=== PATIENT | female | born 1945 | race Caucasian/White ===

== ENCOUNTER 2019-12-24 04:47 | Observation (INO) ==
[2019-12-24 08:25] LABS: Hematocrit 35.7 % (35.3-44.9); Hemoglobin 11.3 g/dL (11.5-15.4)
[2019-12-24] MEDS: Fenofibrate 54 MG TABLET PO SCH (10:16)
[2019-12-24] MEDS: sulfaSALAzine 500 MG TABLET PO SCH ×3 (10:16→19:50)
[2019-12-24 13:38] LABS: Hematocrit 33.6 % (35.3-44.9); Hemoglobin 10.9 g/dL (11.5-15.4)
[2019-12-24] MEDS ORDERED: Lidocaine -MPF 2% 2 ML VIAL ONE (14:20)
[2019-12-24] MEDS ORDERED: *HR* Propofol 200 MG/20 ML VIAL IVP ONE (14:20)
[2019-12-24] MEDS: Pantoprazole 40 MG VIAL IVP SCH (17:11)
[2019-12-24] MEDS: Acetaminophen 325 MG TABLET PO PRN (18:45)
[2019-12-24 19:45] LABS: Hematocrit 34.4 % (35.3-44.9)
[2019-12-24] MEDS ORDERED: Ondansetron 4 MG/2 ML VIAL IVP PRN (22:19)
[2019-12-25] MEDS ORDERED: Ondansetron 4 MG/2 ML VIAL IVP ONE (06:00)
[2019-12-25] MEDS: Pantoprazole 40 MG VIAL IVP SCH (06:04)
[2019-12-25 06:14] LABS: Basophils % 0.7 %; Eosinophils # 0.2 K/mcL (0.0-0.6); Eosinophils % 2.5 %; Hematocrit 33.8 % (35.3-44.9); Hemoglobin 10.7 g/dL (11.5-15.4); Immature Granulocytes % 0.5 % (0-4); Lymphocytes % 16.8 %; Mean Corpuscular HGB Conc 31.7 g/dL (31.6-35.5); Mean Corpuscular Hemoglobin 28.2 pg (28.0-33.3); Mean Corpuscular Volume 88.9 fL (83.0-100.0); Mean Platelet Volume 9.4 fL (9.4-12.4); Monocytes # 0.7 K/mcL (0.0-1.3); Monocytes % 11.4 %; Platelet Count 296 K/mcL (140-400); Red Cell Distribution Width 14.1 % (11.5-14.5); Segmented Neutrophils % 68.1 %; White Blood Count 5.9 K/mcL (4.3-11.1)
[2019-12-25 06:43] LABS: BUN/Creatinine Ratio 18 (6-26); Blood Urea Nitrogen 10 mg/dL (8-23); Calcium 9.2 mg/dL (8.6-10.3); Carbon Dioxide 25 mEq/L (23-29); Chloride 102 mEq/L (98-107); Glucose 122 mg/dL (70-105); Osmolality,Calculated 278 (280-300); Potassium 3.3 mEq/L (3.5-5.1); Sodium 134 mEq/L (136-145); eGFR For African Americans > 60 (> 60); eGFR For Non-African Americans > 60 (> 60)
[2019-12-25] MEDS ORDERED: Simethicone 40 MG/0.6 ML MLS IR ONE (07:33)
[2019-12-25] MEDS: *HR* Midazolam HCl 5 MG/5 ML VIAL IVP ONE ×2 (07:40→10:42)
[2019-12-25] MEDS: *HR* FentaNYL (PF) 100 MCG/2 ML VIAL IVP ONE ×2 (07:40→10:42)
[2019-12-25] MEDS ORDERED: *HR* FentaNYL (PF) 100 MCG/2 ML VIAL ONE (09:30)
[2019-12-25] MEDS ORDERED: *HR* Midazolam HCl 5 MG/5 ML VIAL IVP ONE (09:31)
[2019-12-25] MEDS: Potassium Chloride 20 MEQ, Lidocaine 1% 2 ML in 0.9 % Sodium Chloride 250 ML IVPB ONE ×2 (10:40→11:01)
[2019-12-25] MEDS: sulfaSALAzine 500 MG TABLET PO SCH ×3 (10:41→23:43)
[2019-12-25] MEDS: Fenofibrate 54 MG TABLET PO SCH (10:41)
[2019-12-25] MEDS: Acetaminophen 325 MG TABLET PO PRN (16:25)
[2019-12-25] MEDS: Famotidine 20 MG TABLET PO SCH (23:43)
[2019-12-26 04:16] LABS: Hematocrit 33.7 % (35.3-44.9); Hemoglobin 10.7 g/dL (11.5-15.4)
[2019-12-26 04:37] LABS: BUN/Creatinine Ratio 14 (6-26); Blood Urea Nitrogen 9 mg/dL (8-23); Calcium 8.9 mg/dL (8.6-10.3); Carbon Dioxide 28 mEq/L (23-29); Chloride 106 mEq/L (98-107); Glucose 96 mg/dL (70-105); Osmolality,Calculated 283 (280-300); Potassium 3.9 mEq/L (3.5-5.1); Sodium 137 mEq/L (136-145); eGFR For African Americans > 60 (> 60); eGFR For Non-African Americans > 60 (> 60)
[2019-12-26] MEDS: sulfaSALAzine 500 MG TABLET PO SCH (08:09)
[2019-12-26] MEDS: Fenofibrate 54 MG TABLET PO SCH (08:09)
[2019-12-26] MEDS: Famotidine 20 MG TABLET PO SCH (08:09)
[2019-12-26 11:31] VITALS: BP 123/78
== END 2019-12-26 13:36 | disposition home or self-care (01) ==
LOC: 3ANU → SUATTDRO 06:49
PROVIDERS: ADMIT Internal Medicine; ATTEND Internal Medicine
PROC: ENDOCBX (2019-12-25 13:00)

== ENCOUNTER 2020-12-20 19:34 | Inpatient (IN) ==
[2020-12-20] MEDS ORDERED: Naloxone 0.4 MG/ML INJ IVP PRN (21:52)
[2020-12-20] MEDS: 0.9 % Sodium Chloride 1,000 ML IVC SCH (23:16)
[2020-12-20] MEDS ORDERED: Melatonin 3 MG TABLET PO PRN (23:33)
[2020-12-21 02:19] LABS: Adenovirus F 40/41 PCR Not detected (Not detect); Astrovirus PCR Not detected (Not detect); C.difficile Toxin A/B Gene PCR DETECTED (Not detect); Campylobacter by PCR Not detected (Not detect); Cryptosporidium by PCR Not detected (Not detect); Cyclospora cayetanensis PCR Not detected (Not detect); E. coli O157 by PCR Not detected (Not detect); Entamoeba histolytica PCR Not detected (Not detect); Enteroaggregative E.coli(EAEC) Not detected (Not detect); Enteropathogenic E.coli(EPEC) Not detected (Not detect); Enterotoxigenic E.coli (ETEC) Not detected (Not detect); Giardia lamblia PCR Not detected (Not detect); Norovirus GI/GII PCR Not detected (Not detect); Plesiomonas shigelloides PCR Not detected (Not detect); Rotavirus A PCR Not detected (Not detect); Salmonella PCR Not detected (Not detect); Sapovirus PCR Not detected (Not detect); Shig/EnteroinvasiveE coli EIEC Not detected (Not detect); Shigalike tox-prod E coli STEC Not detected (Not detect); Vibrio PCR Not detected (Not detect); Vibrio cholerae PCR Not detected (Not detect); Yersinia enterocolitica PCR Not detected (Not detect)
[2020-12-21] MEDS: Vancomycin Oral Soln 125 MG/2.5 ML UDC PO SCH ×5 (03:36→19:52)
[2020-12-21 06:54] LABS: INR 1.2; Prothrombin Time 13.3 Seconds (9.4-12.1)
[2020-12-21 06:57] LABS: Basophils # 0.1 K/mcL (0.0-0.2); Basophils % 0.4 %; Eosinophils # 0.4 K/mcL (0.0-0.6); Eosinophils % 3.5 %; Hematocrit 32.7 % (35.3-44.9); Hemoglobin 10.5 g/dL (11.5-15.4); Immature Granulocytes % 0.5 % (0-4); Lymphocytes # 1.5 K/mcL (0.6-4.6); Lymphocytes % 13.2 %; Mean Corpuscular HGB Conc 32.1 g/dL (31.6-35.5); Mean Corpuscular Hemoglobin 27.6 pg (28.0-33.3); Mean Corpuscular Volume 85.8 fL (83.0-100.0); Mean Platelet Volume 9.2 fL (9.4-12.4); Monocytes # 1.3 K/mcL (0.0-1.3); Monocytes % 11.1 %; Neutrophils # 8.1 K/mcL (1.6-8.9); Platelet Count 442 K/mcL (140-400); Red Blood Count 3.81 M/mcL (3.82-4.97); Red Cell Distribution Width 14.8 % (11.5-14.5); Segmented Neutrophils % 71.3 %; White Blood Count 11.4 K/mcL (4.3-11.1)
[2020-12-21] MEDS: 0.9 % Sodium Chloride 1,000 ML IVC SCH (09:22)
[2020-12-21] MEDS: Lisinopril-HCTZ 20-12.5mg TABLET PO SCH (09:26)
[2020-12-21 09:31] LABS: Albumin 2.9 g/dL (3.5-5.7); Albumin/Globulin Ratio 0.9 (1.1-2.2); Alkaline Phosphatase 56 Units/L (34-104); Aspartate Amino Transferase 13 Units/L (13-39); BUN/Creatinine Ratio 15 (6-26); Bilirubin,Total 0.3 mg/dL (0.3-1.0); Blood Urea Nitrogen 8 mg/dL (8-23); Calcium 8.5 mg/dL (8.6-10.3); Carbon Dioxide 24 mEq/L (23-29); Chloride 104 mEq/L (98-107); Globulin 3.2 g/dL (2.4-3.5); Glucose 98 mg/dL (70-105); Magnesium 1.7 mg/dL (1.6-2.6); Osmolality,Calculated 282 (280-300); Potassium 3.3 mEq/L (3.5-5.1); Sodium 137 mEq/L (136-145); Total Protein 6.1 g/dL (6.4-8.9); eGFR For African Americans > 60 (> 60); eGFR For Non-African Americans > 60 (> 60)
[2020-12-21 10:57] LABS: Alanine Aminotransferase 8 Units/L (7-52)
[2020-12-21] MEDS ORDERED: Cyanocobalamin (B-12) 1,000 MCG/ML VIAL IM SCH (15:15)
[2020-12-21] MEDS: Acetaminophen 325 MG TABLET PO PRN ×2 (17:01→23:30)
[2020-12-21] MEDS: Ondansetron 4 MG/2 ML VIAL IVP PRN (23:26)
[2020-12-22 04:59] LABS: Basophils # 0.1 K/mcL (0.0-0.2); Basophils % 0.6 %; Eosinophils # 0.5 K/mcL (0.0-0.6); Eosinophils % 4.3 %; Hematocrit 35.7 % (35.3-44.9); Immature Granulocytes % 0.4 % (0-4); Lymphocytes # 1.6 K/mcL (0.6-4.6); Lymphocytes % 12.8 %; Mean Corpuscular HGB Conc 30.8 g/dL (31.6-35.5); Mean Corpuscular Hemoglobin 27.2 pg (28.0-33.3); Mean Corpuscular Volume 88.1 fL (83.0-100.0); Monocytes # 1.6 K/mcL (0.0-1.3); Monocytes % 12.9 %; Neutrophils # 8.6 K/mcL (1.6-8.9); Platelet Count 457 K/mcL (140-400); Red Blood Count 4.05 M/mcL (3.82-4.97); Red Cell Distribution Width 14.8 % (11.5-14.5); White Blood Count 12.4 K/mcL (4.3-11.1)
[2020-12-22 05:19] LABS: BUN/Creatinine Ratio 9 (6-26); Blood Urea Nitrogen 5 mg/dL (8-23); Calcium 8.5 mg/dL (8.6-10.3); Carbon Dioxide 26 mEq/L (23-29); Chloride 101 mEq/L (98-107); Glucose 96 mg/dL (70-105); Osmolality,Calculated 279 (280-300); Potassium 3.4 mEq/L (3.5-5.1); Sodium 136 mEq/L (136-145); eGFR For African Americans > 60 (> 60); eGFR For Non-African Americans > 60 (> 60)
[2020-12-22] MEDS: Ondansetron 4 MG/2 ML VIAL IVP PRN (08:37)
[2020-12-22] MEDS: Lisinopril-HCTZ 20-12.5mg TABLET PO SCH (08:40)
[2020-12-22] MEDS: Fenofibrate 54 MG TABLET PO SCH (08:40)
[2020-12-22] MEDS: Cholecalciferol (D-3) 1,000 UNIT (25MCG) TABLET PO SCH (08:40)
[2020-12-22] MEDS: Multivit/Ca/Min/Fe/FA 1 TAB TABLET PO SCH (08:41)
[2020-12-22] MEDS: Budesonide [Entocort Ec] 3 MG Capdr...Er PO SCH (08:53)
[2020-12-22] MEDS: Propranolol LA (24 HR) 80 MG CAP.SA.24H PO SCH (08:53)
[2020-12-22] MEDS: Vancomycin Oral Soln 125 MG/2.5 ML UDC PO SCH ×4 (08:58→20:50)
[2020-12-22] MEDS: Ringers Solution, Lactated 1,000 ML IVC SCH (12:19)
[2020-12-22] MEDS: Acetaminophen 325 MG TABLET PO PRN ×2 (17:19→23:28)
[2020-12-23] MEDS ORDERED: 0.9 % Sodium Chloride 1,000 ML IVC ONE (02:12)
[2020-12-23] MEDS: Ringers Solution, Lactated 1,000 ML IVC SCH (04:30)
[2020-12-23 04:53] LABS: Hematocrit 33.7 % (35.3-44.9); Hemoglobin 10.5 g/dL (11.5-15.4); Mean Corpuscular HGB Conc 31.2 g/dL (31.6-35.5); Mean Corpuscular Hemoglobin 26.6 pg (28.0-33.3); Mean Corpuscular Volume 85.3 fL (83.0-100.0); Platelet Count 422 K/mcL (140-400); Red Blood Count 3.95 M/mcL (3.82-4.97); Red Cell Distribution Width 14.8 % (11.5-14.5); White Blood Count 12.7 K/mcL (4.3-11.1)
[2020-12-23 05:09] LABS: BUN/Creatinine Ratio 14 (6-26); Blood Urea Nitrogen 7 mg/dL (8-23); Calcium 7.9 mg/dL (8.6-10.3); Carbon Dioxide 23 mEq/L (23-29); Chloride 104 mEq/L (98-107); Glucose 100 mg/dL (70-105); Magnesium 1.4 mg/dL (1.6-2.6); Osmolality,Calculated 278 (280-300); Phosphorous 2.9 mg/dL (2.7-4.5); Potassium 3.6 mEq/L (3.5-5.1); Sodium 135 mEq/L (136-145); eGFR For African Americans > 60 (> 60); eGFR For Non-African Americans > 60 (> 60)
[2020-12-23 05:18] LABS: Lymphocytes # 0.8 K/mcL (0.6-4.6); Monocytes # 0.3 K/mcL (0.0-1.3); Neutrophils # 11.7 K/mcL (1.6-8.9); Platelet Estimate Normal (Normal); Toxic Granulation Present (Not Present); Toxic Vacuolation Present (Not Present)
[2020-12-23] MEDS ORDERED: Magnesium Oxide 400 MG TABLET PO ONE (07:20)
[2020-12-23] MEDS: Vancomycin Oral Soln 125 MG/2.5 ML UDC PO SCH ×4 (08:19→20:30)
[2020-12-23] MEDS: Propranolol LA (24 HR) 80 MG CAP.SA.24H PO SCH (08:19)
[2020-12-23] MEDS: Fenofibrate 54 MG TABLET PO SCH (08:19)
[2020-12-23] MEDS: Lactobacillus 1 EACH CAP.SPRINK PO SCH (08:19)
[2020-12-23] MEDS: Multivit/Ca/Min/Fe/FA 1 TAB TABLET PO SCH (08:19)
[2020-12-23] MEDS: Cholecalciferol (D-3) 1,000 UNIT (25MCG) TABLET PO SCH (08:19)
[2020-12-23] MEDS: lisinopriL 10 MG TABLET PO SCH (08:19)
[2020-12-23] MEDS: Budesonide [Entocort Ec] 3 MG Capdr...Er PO SCH (08:20)
[2020-12-23] MEDS ORDERED: *HR* Propofol 200 MG/20 ML VIAL IVP ONE (08:43)
[2020-12-23] MEDS ORDERED: Ondansetron 4 MG/2 ML VIAL ONE (08:43)
[2020-12-23] MEDS ORDERED: Lidocaine -MPF 4% 5 ML AMPUL ONE (08:43)
[2020-12-23] MEDS ORDERED: *HR* Succinylcholine 200 MG/10 ML VIAL IVP ONE (08:43)
[2020-12-23] MEDS ORDERED: *HR* FentaNYL (PF) 100 MCG/2 ML VIAL ONE (08:43)
[2020-12-23] MEDS ORDERED: Lidocaine -MPF 2% 2 ML VIAL ONE (08:43)
[2020-12-23] MEDS: methylPREDNISolone 125 MG/2 ML VIAL IVP SCH (09:42)
[2020-12-23] MEDS: Cholestyramine 4 GM POWD.PACK PO SCH (17:12)
[2020-12-23] MEDS ORDERED: 0.9 % Sodium Chloride 1,000 ML IVC SCH (19:00)
[2020-12-24 03:42] LABS: Hematocrit 32.9 % (35.3-44.9); Hemoglobin 10.4 g/dL (11.5-15.4); Mean Corpuscular HGB Conc 31.6 g/dL (31.6-35.5); Mean Corpuscular Hemoglobin 26.6 pg (28.0-33.3); Mean Corpuscular Volume 84.1 fL (83.0-100.0); Mean Platelet Volume 9.7 fL (9.4-12.4); Platelet Count 556 K/mcL (140-400); Red Blood Count 3.91 M/mcL (3.82-4.97); White Blood Count 8.6 K/mcL (4.3-11.1)
[2020-12-24 03:55] LABS: BUN/Creatinine Ratio 19 (6-26); Blood Urea Nitrogen 9 mg/dL (8-23); Calcium 8.3 mg/dL (8.6-10.3); Carbon Dioxide 24 mEq/L (23-29); Chloride 105 mEq/L (98-107); Glucose 137 mg/dL (70-105); Magnesium 2.2 mg/dL (1.6-2.6); Osmolality,Calculated 281 (280-300); Phosphorous 2.3 mg/dL (2.7-4.5); Potassium 3.9 mEq/L (3.5-5.1); Sodium 135 mEq/L (136-145); eGFR For African Americans > 60 (> 60); eGFR For Non-African Americans > 60 (> 60)
[2020-12-24 04:18] LABS: Lymphocytes # 1.2 K/mcL (0.6-4.6); Monocytes # 0.2 K/mcL (0.0-1.3); Neutrophils # 7.2 K/mcL (1.6-8.9)
[2020-12-24 04:19] LABS: Platelet Estimate Increased (Normal); Toxic Granulation Present (Not Present)
[2020-12-24] MEDS: Cholestyramine 4 GM POWD.PACK PO SCH ×2 (08:53→17:14)
[2020-12-24] MEDS: Propranolol LA (24 HR) 80 MG CAP.SA.24H PO SCH (08:54)
[2020-12-24] MEDS: Cholecalciferol (D-3) 1,000 UNIT (25MCG) TABLET PO SCH (08:54)
[2020-12-24] MEDS: Fenofibrate 54 MG TABLET PO SCH (08:54)
[2020-12-24] MEDS: Lactobacillus 1 EACH CAP.SPRINK PO SCH (08:54)
[2020-12-24] MEDS: Multivit/Ca/Min/Fe/FA 1 TAB TABLET PO SCH (08:54)
[2020-12-24] MEDS: Vancomycin Oral Soln 125 MG/2.5 ML UDC PO SCH ×4 (08:55→20:22)
[2020-12-24] MEDS: lisinopriL 10 MG TABLET PO SCH (08:55)
[2020-12-24] MEDS: methylPREDNISolone 125 MG/2 ML VIAL IVP SCH (09:07)
[2020-12-24] MEDS: *HR* Heparin 5,000 UNIT/ML VIAL SQ SCH (17:14)
[2020-12-25 02:31] LABS: BUN/Creatinine Ratio 22 (6-26); Blood Urea Nitrogen 11 mg/dL (8-23); Calcium 8.2 mg/dL (8.6-10.3); Carbon Dioxide 24 mEq/L (23-29); Chloride 105 mEq/L (98-107); Glucose 119 mg/dL (70-105); Magnesium 2.1 mg/dL (1.6-2.6); Osmolality,Calculated 281 (280-300); Phosphorous 2.3 mg/dL (2.7-4.5); Potassium 3.9 mEq/L (3.5-5.1); Sodium 135 mEq/L (136-145); eGFR For African Americans > 60 (> 60); eGFR For Non-African Americans > 60 (> 60)
[2020-12-25] MEDS ORDERED: Acetaminophen 325 MG TABLET PO PRN (03:55)
[2020-12-25] MEDS: *HR* Heparin 5,000 UNIT/ML VIAL SQ SCH (05:03)
[2020-12-25 08:07] VITALS: BP 125/76
[2020-12-25] MEDS: Cholestyramine 4 GM POWD.PACK PO SCH (09:29)
[2020-12-25] MEDS: Vancomycin Oral Soln 125 MG/2.5 ML UDC PO SCH (09:29)
[2020-12-25] MEDS: methylPREDNISolone 125 MG/2 ML VIAL IVP SCH (09:29)
[2020-12-25] MEDS: lisinopriL 10 MG TABLET PO SCH (09:30)
[2020-12-25] MEDS: Lactobacillus 1 EACH CAP.SPRINK PO SCH (09:30)
[2020-12-25] MEDS: Multivit/Ca/Min/Fe/FA 1 TAB TABLET PO SCH (09:30)
[2020-12-25] MEDS: Propranolol LA (24 HR) 80 MG CAP.SA.24H PO SCH (09:30)
[2020-12-25] MEDS: Fenofibrate 54 MG TABLET PO SCH (09:30)
[2020-12-25] MEDS: Cholecalciferol (D-3) 1,000 UNIT (25MCG) TABLET PO SCH (09:30)
== END 2020-12-25 13:20 | disposition home or self-care (01) | DRG 371 ==
LOC: 3ANU → SUATTDRO 21:29
PROVIDERS: ADMIT Student in an Organized Health Care Education/Training Program; ATTEND Internal Medicine